=== PATIENT | female | born 1985 | race Hispanic/Latino ===

== ENCOUNTER 2021-04-23 01:37 | Emergency (ER) | payer SELFPAY ==
[~2021-04-23] VITALS: Ht 157.5 cm; Wt 63.5 kg
[2021-04-23 01:40] VITALS: BP 122/62
== END 2021-04-23 03:20 | disposition home or self-care (01) ==
LOC: EDH 01:37
DX: Z02.89 Encounter for other administrative examinations (principal); J45.909 Unspecified asthma, uncomplicated